=== PATIENT | male | born 1950 | race Caucasian/White ===

== ENCOUNTER 2019-11-29 09:48 | Observation (INO) ==
--- NOTE | 2019-11-27 08:29 | PAT Medication Instructions ---
Medication Instructions Date of Service November 27, 2019 Home Medications aspirin [Aspir-81] 81 mg PO QAM coQ10 (ubiquinol) 200 mg PO QAM escitalopram oxalate 20 mg PO QAM glipizide 10 mg PO BID hydrochlorothiazide 25 mg PO QAM levothyroxine 125 mcg PO QAM lisinopril 10 mg PO BID metformin 1,000 mg PO BID [id number]-[id number] [Multivitamin 50 Plus] 1 tab PO QAM rosuvastatin 10 mg PO HS selenium 200 mcg PO QAM ASK your surgeon for instructions aspirin [Aspir-81] 81 mg PO QAM STOP taking 2 weeks before surgery If surgery is within 2 weeks, stop taking as soon as possible. coQ10 (ubiquinol) 200 mg PO QAM fiofznhphdod-iljmuixu-fatmps [Multivitamin 50 Plus] 1 tab PO QAM selenium 200 mcg PO QAM DO NOT take the morning of surgery glipizide 10 mg PO BID hydrochlorothiazide 25 mg PO QAM lisinopril 10 mg PO BID metformin 1,000 mg PO BID Take morning of surgery With a small sip of water, OTHERWISE NOTHING TO EAT OR DRINK AFTER MIDNIGHT: escitalopram oxalate 20 mg PO QAM levothyroxine 125 mcg PO QAM Take evening before surgery glipizide 10 mg PO BID lisinopril 10 mg PO BID metformin 1,000 mg PO BID rosuvastatin 10 mg PO HS Other Notes If you have any questions please call us at [phone] or [phone] or [phone] or [phone]
--- NOTE | 2019-11-27 10:05 | Anesthesiology Consultation ---
Date of Service November 27, 2019 Assessment & Plan (1) Encounter for pre-operative examination: COVID Status: As of 11/26 assessment, patient denies travel to endemic area, known exposure/sick contacts, or symptoms of COVID19. Patient instructed that they and their household members must follow strict social distancing guidelines, wear a mask in public and avoid travel for 14 days prior to surgery. Preoperative COVID19 testing to be completed prior to surgery per surgeon's a rrangements. Patient made aware to self-isolate as much as possible between COVID testing and surgery. Patient was seen by urology on 11/25 and booked [facility] due to infection and urgent need for intervention. Case for medical necessity as noted in surgeon's H+P in EMR. Per surgeon's senior office support assistant sosa, surgeon discussed case with Dr. Lundberg. COVID testing was done at [facility] 11/26 but may not be resulted by AM DOS. Travel history is very low-risk. Patient is retired, reports he wears a mask and adheres to social distancing/hygiene guidelines. Has not been in any large crowds/events, no travel. Can order [place] test AM DOS and use 20/20 rule at anesthesia discretion. Chart Review Chart Review: Acceptable Risk for Surgery and Patient seen in Pre Admission Testing Teaching & Discussion Instructed NPO after midnight before surgery, except medications with 15 cc of water. Medication instructions provided according to the [facility] guidelines. History Surgery Operation Date: 11/29/19 11:10 Proposed Procedures p Explantation of Implant, Possible Implantation of Inflatable Penile Prothesis, Malleable Implant, Washout, Repair of Corporal Body - Byron Phillips, Height/Weight Height: 5 ft 10 in Weight: 105.6 kg Allergies Allergy/AdvReac Type Severity Reaction Status Date / Time atorvastatin AdvReac Mild FLU LIKE SX Unverified 11/27/19 07:50 Medications Home Medications Medication Instructions Recorded Confirmed Last Taken aspirin [Aspir-81] 81 mg PO QAM 11/27/19 11/27/19 Unknown coQ10 (ubiquinol) 200 mg PO QAM 11/27/19 11/27/19 Unknown escitalopram oxalate 20 mg PO QAM 11/27/19 11/27/19 Unknown glipizide 10 mg PO BID 11/27/19 11/27/19 Unknown hydrochlorothiazide 25 mg PO QAM 11/27/19 11/27/19 Unknown levothyroxine 125 mcg PO QAM 11/27/19 11/27/19 Unknown lisinopril 10 mg PO BID 11/27/19 11/27/19 Unknown metformin 1,000 mg PO BID 11/27/19 11/27/19 Unknown kiwwvxxwgvbr-rcjevswb-fruugi 1 tab PO QAM 11/27/19 11/27/19 Unknown [Multivitamin 50 Plus] rosuvastatin 10 mg PO HS 11/27/19 11/27/19 Unknown selenium 200 mcg PO QAM 11/27/19 11/27/19 Unknown Past Medical History Medical History Anxiety and depression Degenerative disc disease Diabetes mellitus, type 2 On Metformin and Glipizide Gross hematuria Will have occasionally, 2/2 h/o radiation to prostate. History of prostate cancer S/P radical prostatectomy and radiation ~2008 Hyperlipidemia Hypertension Hypothyroidism Osteoarthritis Sleep apnea USES CPAP Exercise / Class Metabolic Activity II 4-5 Yardwork/Stairs/Walk up hill Past Family History Family History Father Family history of diabetes mellitus Past Surgical History Surgical History H/O hand surgery RT CYST REMOVED H/O metal removed from eye History of colonoscopy History of open reduction and internal fixation (ORIF) procedure LEFT LEG History of penile implant History of repair of rotator cuff RT History of surgery on arm LEFT FX ARM REPAIRED (HARDWARE REMOVED) History of tonsillectomy History of tooth extraction Hx of radical prostatectomy Past Anesthesia History No Hx of Anesthesia Complications and No Family Hx of Anesthesia Complications History of PONV No Hx of PONV and Hx of Motion Sickness Social History Smoking Status: Former smoker tobacco type: cigarettes Do You Dip or Chew Tobacco: No Smoking End Date: Hx Alcohol Use: Yes Alcohol type: beer, wine and hard liquor alcohol intake frequency: a few times a month substance use type: does not use Review of Systems Pt denies any recent chest pain, shortness of breath, palpitations, cough, fever, URI, or uncontrolled acid reflux. Physical Exam Vital Signs BP: 134/73 P: 65bpm SPO2: 94% RA T: 98.5 F R: 16 ENMT Mouth: + dental restorations (implant upper R side); no chipped teeth and no loose teeth Thyromental Distance: < 3.5 Finger Breadths (3) Mallampati Class: I Neck normal visual inspection and + facial hair (medium length goatee); neck extension not limited Respiratory normal respiratory effort Auscultation: lungs clear to auscultation bilaterally Cardiovascular Rate/Rhythm: regular rate and regular rhythm Heart Sounds: no murmur Extremities: no edema Testing Laboratory Results 11/27/19 08:15 11/27/19 10:17 Hemoglobin A1c 7.6 % (4.5-5.6) H 11/27/19 08:15 Urine Color Dark Yellow 11/27/19 08:15 Urine Appearance Clear (Clear) 11/27/19 08:15 Urine pH 6.5 (4.5-7.5) 11/27/19 08:15 Ur Specific Hondo 1.015 (1.000-1.030) 11/27/19 08:15 Urine Protein Negative (Negative) 11/27/19 08:15 Urine Glucose (UA) Negative (Negative) 11/27/19 08:15 Urine Ketones Negative (Negative) 11/27/19 08:15 Urine Nitrite Negative (Negative) 11/27/19 08:15 Ur Leukocyte Esterase Negative (Negative) 11/27/19 08:15 Electrocardiogram Date: 11/27/19 Findings: + NSR @ (65bpm) Low voltage QRS.
[2019-11-27 10:40] LABS: Appearance Urine Clear (Clear); Bilirubin Urine Negative (Negative); Blood Urine Negative (Negative); Color Urine Dark Yellow; Glucose Urine UA Negative (Negative); Ketones Urine Negative (Negative); Leukocyte Esterase Urine Negative (Negative); Nitrite Urine Negative (Negative); Protein Urine Negative (Negative); Specific Gravity Urine 1.015 (1.000-1.030); Urobilinogen Urine Negative (Negative); pH Urine 6.5 (4.5-7.5)
[2019-11-27 10:42] LABS: Basophils # (auto) 0.01 K/uL (0-0.2); Basophils % (auto) 0.1 %; Eosinophils # (auto) 0.18 K/uL (0-0.5); Eosinophils % (auto) 2.6 %; Hematocrit (blood only) 42.7 % (42-52); Immature Granulocytes # (auto) 0.05 K/uL (0.00-0.02); Immature Granulocytes % (auto) 0.7 %; Lymphocytes # (auto) 1.65 K/uL (1.2-3.4); Lymphocytes % (auto) 23.5 %; Mean Corpuscular Hemoglobin 30.1 pg (25-34); Mean Corpuscular Hgb Conc 32.8 g/dL (32-36); Mean Corpuscular Volume 91.8 fL (80-100); Mean Platelet Volume 10.1 fL (7.4-10.4); Monocytes # (auto) 0.49 K/uL (0.11-0.59); Neutrophils # (auto) 4.63 K/uL (1.4-6.5); Neutrophils % (auto) 66.1 %; Platelet Count 190 K/uL (130-400); RDW Coefficient of Variation 13.5 % (11.5-14.5); RDW Standard Deviation 44.6 fL (36.4-46.3); Red Blood Count 4.65 M/uL (4.7-6.1); White Blood Count 7.01 K/uL (4.8-10.8)
[2019-11-27 11:00] LABS: Estimated Average Glucose 171 mg/dl; Hemoglobin A1C 7.6 % (4.5-5.6)
[2019-11-27 11:09] LABS: BUN Creatinine Ratio 18.2 (10-20); Calcium 9.7 mg/dl (8.5-10.1); Creatinine Clr Calc Pharmacy 77.2 ml/min; Est GFR (African American) 77.5; Est GFR (Non-African American) 66.9; Potassium 4.2 mmol/L (3.5-5.1)
[2019-11-29 08:06] LABS: SARS CoV2 RNA (COVID-19) NOT DETECTED (NOT DETECTED)
[~2019-11-29 09:48] MED LIST: GENTAMICIN SULFATE 160 MG in DEXTROSE 5% 100 ML IV SCH; LR 15ML/HR IV SCH; PIPERACILLIN/TAZOBACTAM 3.375 GM in DEXTROSE 5% 100 ML IV SCH
--- NOTE | 2019-11-29 10:14 | History & Physical Bridge Note ---
Date of Service November 29, 2019 History & Physical Bridge Note I have examined the patient, reviewed the History & Physical and in the interval since the performance of the History & Physical I have noted the following changes of clinical significance: no changes noted
[2019-11-29] MEDS ORDERED: ONDANSETRON INJ 2 MG/ML 2 ML VIAL ONE (11:22)
[2019-11-29] MEDS ORDERED: DEXAMETHASONE SOD INJ 4 MG/ML VIAL ONE (11:22)
[2019-11-29] MEDS ORDERED: PROPOFOL IV EMULSION 10 MG/ML 20 ML VIAL IV ONE (11:22)
[2019-11-29] MEDS ORDERED: MIDAZOLAM HCL 1 MG/ML 2ML VIAL ONE (11:22)
[2019-11-29] MEDS ORDERED: fentaNYL citrate 100 MCG/2 ML VIAL ONE ×2 (11:22→13:44)
[2019-11-29] MEDS ORDERED: LIDOCAINE HCL 2% 2 ML VIAL/AMP(20MG/ML) INFIL ONE (11:22)
[2019-11-29] MEDS ORDERED: MEPERIDINE HCL 25 MG/ML CARP/VIAL IV PRN (11:25)
[2019-11-29] MEDS ORDERED: PHENYLEPHRINE 100MCG/ML 5ML SYR IV PRN (11:25)
[2019-11-29] MEDS ORDERED: ePHEDrine sulfate 50 MG/ML AMP IV PRN (11:25)
[2019-11-29] MEDS ORDERED: ATROPINE SULFATE 0.1 MG/ML 10ML SYR IV PRN (11:25)
[2019-11-29] MEDS ORDERED: LABETALOL HCL IV 5 MG/ML 20ML IV PRN (11:25)
[2019-11-29] MEDS ORDERED: ONDANSETRON INJ 2 MG/ML 2 ML VIAL IV PRN (11:25)
[2019-11-29] MEDS ORDERED: VANCOMYCIN HCL 1000MG/20ML VIAL ONE (11:58)
[2019-11-29] MEDS ORDERED: BACITRACIN INJ 50,000 UNIT VIAL ONE (11:58)
[2019-11-29] MEDS ORDERED: GENTAMICIN SULFATE 40 MG/ML 2 ML VIAL ONE (12:01)
--- NOTE | 2019-11-29 12:07 | Electrocardiogram Report ---
Test Reason : Blood Pressure : / mmHG Vent. Rate : 065 BPM Atrial Rate : 065 BPM P-R Int : 174 ms QRS Dur : 096 ms QT Int : 394 ms P-R-T Axes : 036 040 040 degrees QTc Int : 409 ms Normal sinus rhythm Low voltage QRS Borderline ECG No previous ECGs available Confirmed by Omer Campbell ([id number]) on 11/29/2019 12:07:10 PM Referred By: Byron Phillips Confirmed By:Omer Campbell
[2019-11-29] MEDS ORDERED: BUPIVACAINE 0.25% 30 ML VIAL ONE (12:21)
[2019-11-29] MEDS ORDERED: PIPERACILL/TAZOBAC CONSULT ACTIVE PRN (12:33)
[2019-11-29] MEDS ORDERED: PIPERACILLIN/TAZOBACTAM 3.375 GM in DEXTROSE 5% 100 ML IV SCH (12:45)
[2019-11-29] MEDS ORDERED: GLYCOPYRROLATE 0.2 MG/ML VIAL ONE (13:51)
--- NOTE | 2019-11-29 16:40 | Operative Report ---
PG Post Operative Report Pre & Post Diagnosis Operation Date: 11/29/19 11:45 Pre-Op Diagnosis: Malfunction of penile implant Post-Op Diagnosis: Malfunction of penile implant I identified the patient and participated in the time-out.: Yes Procedure Operation Date: 11/29/19 11:45 Actual Procedures p Explantation of Inflatable three piece Implant, Malleable Penile Implantation, Abraham Protocol Washout, Repair of Corporal Body(Not Applicable) - Byron Phillips, Surgeon Byron Phillips, II, DO Digester Operator None Estimated Blood Loss 15 Findings Consistent with Post-Op Diagnosis Buckling and malposition of penile implant with failure to function and development of severe inflammation. Specimens Explanted device Drains 10 Fr drain x 2 18 Fr Silicon Maldonado Anesthesia Type General Complications none Disposition Disposition: Recovery Room Indications Buckling and malposition of penile implant with failure to function and development of severe inflammation. Risks and benefits discussed at length. Description of Procedure Patient was informed of all risks and benefits and all questions answered. He gave consent for the procedure. The patient was brought back to the operating room. Patient was placed under anesthesia in the supine position. Patient was prepped and draped in the regular sterile fashion. A 10 minute wash and prep was completed by standard protocol for implant placement. A time out was completed. The correct patient and procedure were identified and confirmed. Ioban d ressings were placed to limit skin exposure. A catheter was placed and drained the bladder and was then wiped clean with antibiotic solution. With the time out completed, the device was fully assessed. Due to the area of concern of corporal issues at the distal right lateral shaft, the subcoronal approach was selected. The distal incision was planned and the skin was marked. The base of the penis was assessed and a penile block was completed with 50-50 lidocaine-marcaine local injected into the subcutaneous tissues at the dorsal base of penis after aspirating without blood or issues. A 15-blade scalpel was used to make the distal incision. Care was taken to monitor the important structures of the penis and meatus and glans. The skin was then dissected free and the penis was degloved to the base. The three piece pump was then freed and dissected free of the the surrounding tissues. The Blessing tubing was isolated and found to travel up the left inguinal region. It was clamped and cut to allow manipulation of the device. The tubing heading to the corporal bodies were dissected free. 2-0 Vicryl stay sutures were placed. The corporal body was then opened. The tubeing was manipulated and the implant removed bilaterally. Each side appeared to be missing rear tip extenders. With manipulation these were delivered out the the body. The device was then placed into a container to be sent for gross examination. Cautery was used for any bleeding. Care was taken to monitor the entire time. The wound bed was inspected. No bleeding or other issues. At this point, the corpora cavities were inspected and irrigated with antibiotic solution. These were measured and the corporatomies were extended. Villela dilators were used to assess each side and rule out cross over. Weakening of the distal body on the right was noted and was likely due to pressure from buckling. The right side had an area that was then repaired to close the body. The cavities were irrigated as well as the cavity from the dartos pocket where the pump had been placed. These areas were gently packed with antibiotic lap tapes. Due to the location of the reservoir, the left inguinal area was marked and incised to dissect down to the the inguinal region. The tubing was able to be freed and eventually after considerable dissection, the reservoir was removed en total. The area was flushed multiple times. At this point, with the device completely removed, gloves were changed and a Abraham protocol washout was completed with 7 washouts of Bacitracin, Hydrogen Peroxide, Betadine, Vancomycin with Gentamycin, followed by the first three washes in reverse order. This was completed for the entire area. New towels were placed after irrigation. The equipment was dipped in antibiotic solution. The corporal cavities were measured again. The right side measured 18cm with the left measuring 17 cm. The malleable SmartFocus implants were selected. The 11 implants were selected after measuring. The implants were cut to 17.5 and 17 cm right and left. These were soaked in Vancomycin with Zosyn solution. The zero rear tip extenders/caps were selected. The devices were placed using sterile minimal manipulation technique. The were placed and seated and appeared in good position. The cavities had been checked for cross over and other issues prior to placement. The corporotomies were closed using the 2-0 Vicryl sutures. The area was flushed multiple times. A 3-0 PDS was then used to close the dartos layers at the base of the penis. A drain was placed in the scrotum/dartos pouch and the left inguinal region. These were secured to the skin with a 2-0 nylon. The inguinal incision was closed in layers with a 3-0 PDS and a 1-0 Vicryl followed by a 4-0 Monocryl on the skin. The circumcision scar incision was then closed at the 12 and 6 o'clock position to anchor the edges for closure. This was then approximated with a running 4-0 Monocryl. Irrigation was completed during the process and all bleeding was controlled. The area was cleaned. Adhesive glue was then placed on each incision. The patient was cleaned. Further local was injected at the base of penis circumferentially. A tegaderm bandage was placed on each incision after the glue dried. A bandage was then wrapped around the entire penis gently and then with a Coban dressing wrapped around as the last layer. A ice pack was applied. A sandbag was placed over the groin incision. The patient was cleaned, aroused from anesthesia, and transferred to the pacu in stable condition having tolerated the procedure well with no complications. I was present and participated in all aspects of the procedure. All counts were correct x 2. See implant record for further information I attest to the content of the Intraoperative Record and any orders documented therein. Any exceptions are noted below.
[2019-11-29] MEDS: fentaNYL citrate 100 MCG/2 ML VIAL IV PRN ×4 (16:52→17:07)
[2019-11-29] MEDS: HYDROmorphone INJ 1 MG/ML SYRINGE IV PRN ×3 (17:12→17:40)
--- NOTE | 2019-11-29 17:34 | Anesthesiology Progress Note ---
Date of Service November 29, 2019 Anesthesia Post Procedure Vital Signs Vital Signs: Temp Pulse Pulse Resp BP Pulse Ox 11/29/19 17:15 61 14 151/80 H 99 11/29/19 17:05 63 14 148/89 H 100 11/29/19 16:55 63 12 148/90 H 93 11/29/19 16:45 62 15 161/92 H 93 11/29/19 16:38 36.7 C 69 16 174/90 H 100 11/29/19 10:54 36.8 C 62 16 162/73 H 96 Pain Intensity Bilateral Groin: Pain Intensity: 5 Transfer of Care Handoff Completed per policy Notes Mental Status: alert / awake / arousable and participated in evaluation Patient Amnestic to Procedure: Yes Nausea / Vomiting: adequately controlled Pain: adequately controlled Airway Patency, RR, SpO2: stable & adequate BP & HR: stable & adequate Hydration State: stable & adequate Anesthetic Complications: no major complications apparent
[2019-11-29] MEDS ORDERED: PHARMACY GLYCEMIC MGMT CONSULT PRN (19:22)
[2019-11-29] MEDS: SODIUM CHLORIDE 0.9% 1000ML 1,000 ML IV SCH (19:38)
[2019-11-29] MEDS ORDERED: GLUCOSE 10 TABS/TUBE PO PRN (19:45)
[2019-11-29] MEDS ORDERED: DEXTROSE 50% 50 ML SYRINGE IV PRN (19:45)
[2019-11-29] MEDS ORDERED: GLUCAGON FOR INJ 1 MG VIAL IM PRN (19:45)
[2019-11-29] MEDS ORDERED: GLUCOSE 40% GEL 15 GM TUBE PO PRN (19:45)
[2019-11-29] MEDS ORDERED: CARBOHYDRATES FOR HYPOGLYCEMIA PO PRN (19:45)
[2019-11-29] MEDS: MoRPHine SULFATE 2 MG/ML CARP IV PRN (19:50)
[2019-11-29] MEDS: lisinopriL 10 MG TAB PO SCH (20:50)
[2019-11-29] MEDS: DOCUSATE SODIUM 100 MG CAP PO SCH (20:50)
[2019-11-29] MEDS: INSULIN ASPART 100 UNITS/ML 3 ML PEN SC SCH (20:59)
[2019-11-29] MEDS ORDERED: glipiZIDE 5 MG TAB PO SCH (21:00)
[2019-11-29] MEDS ORDERED: INSULIN GLARGINE SOLOSTAR 100 UNITS/ML 3 ML PEN SC SCH ×2 (21:00→21:45)
[2019-11-29] MEDS ORDERED: ROSUVASTATIN CALCIUM 10 MG TAB PO SCH (21:00)
[2019-11-29] MEDS: OXYCODONE/APAP 7.5/325MG TAB PO PRN (23:24)
[2019-11-30] MEDS: OXYCODONE/APAP 7.5/325MG TAB PO PRN (05:45)
[2019-11-30] MEDS ORDERED: LEVOTHYROXINE SODIUM 125 MCG TABLET PO SCH (06:30)
[2019-11-30 07:16] VITALS: BP 123/68; TEMP 98.2; O2SAT 92
[2019-11-30] MEDS: SODIUM CHLORIDE 0.9% 1000ML 1,000 ML IV SCH (07:31)
[2019-11-30] MEDS: MoRPHine SULFATE 2 MG/ML CARP IV PRN (07:31)
--- NOTE | 2019-11-30 08:48 | Urology Progress Note ---
Date of Service November 30, 2019 Assessment & Plan (1) Malfunction of penile prosthesis: Postop day 1 status post explantation with reimplantation of a new malleable implant. No major problems or issues. Tolerated activity. Has been slowly increasing activity. Had tolerated diet. No major problems or concerns. Pain is controlled. Discussed different options. Plan will be to remove catheter today have patient continue to ambulate and likely go home later in the afternoon. We will continue to monitor. Call if any changes or problems. (2) Prostate cancer: Admission and Anticipated Discharge Date Admission Date: November 29, 2019 Subjective Postop from urologic surgery. Patient has been tolerating well, but is having some pain and discomfort. Incisions have been mild sore. Having some abdominal distension/gas pains. Has tolerated catheter. Drains in place without major problems or issues Has not had severe pain or uncontrollable pain. Patient has been ambulating. Has not had bowel movement or major change. No new nausea or vomiting. Had tolerated anesthesia without major problems Tolerated liquid diet postoperatively. Review of Systems Review of Systems: All systems reviewed & are unremarkable except as noted in HPI & below Physical Exam Physical Exam: General: Alert in no acute distress. HEENT: Normocephalic Atraumatic. Inspection normal. Cranial Nerves 2-12 Grossly intact. Normal inspection of face. Normal inspection of neck. Psychologic: Normal affect. Respiratory: Nonlabored. No use of accessory muscles. No tachypnea or dyspnea. Cardiovascular: No tachycardia Skin: [place] and Dry. No rashes or visible lesions. Extremities/Lymphatics: No edema Abdomen: Appropriately tender. Mild distended. No rebound or guarding. Wound: Clean, dry, covered.. Scrotal support in place. Bilateral drains in place with serosanguineous fluid. Results & Data ([facility]) Vital Signs (Past 12 Hours) Vital Signs Temp Pulse Resp BP Pulse Ox 11/30/19 07:15 36.8 C 57 L 18 123/68 92 11/30/19 03:45 36.6 C 60 16 115/66 95 11/29/19 23:20 37.1 C 68 16 144/71 H 93 11/29/19 21:57 37 C 73 16 117/62 91 11/29/19 20:53 36.8 C 71 16 126/63 92 PG Care Time/CCT Total # of Minutes Spent Total Time Spent with Patient: Total time spent is greater than 50% in coordination of care (as documented) at patient's floor/unit and/or counseling patient: Coding Level of Care Code 23518 Subseq Hosp Care Lvl 3 Diagnoses Malfunction of penile prosthesis T83.490A Prostate cancer C61
[2019-11-30] MEDS ORDERED: hydroCHLOROthiazide 25 MG TAB PO SCH (09:00)
[2019-11-30] MEDS ORDERED: ESCITALOPRAM OXALATE 20 MG TAB PO SCH (09:00)
[2019-11-30] MEDS: lisinopriL 10 MG TAB PO SCH (09:30)
[2019-11-30] MEDS: DOCUSATE SODIUM 100 MG CAP PO SCH (09:30)
[2019-11-30] MEDS: INSULIN ASPART 100 UNITS/ML 3 ML PEN SC SCH ×2 (09:33→14:28)
--- NOTE | 2019-11-30 10:29 | Pharmacy Report ---
Glycemic Control Consultation - Date of Service November 30, 2019 - Scope Scope: Glycemic Pharmacist consulted for glycemic control and to write orders per [facility] inpatient glycemic control protocol. - Objective Weight: 104.4 kg Accuchecks BSG (last 24hrs): 11/29/19 11/29/19 11/29/19 10:24 16:40 18:56 POC Glucose 169 H 152 H 167 H 11/29/19 11/30/19 20:55 08:51 POC Glucose 274 H 112 H HbA1c: Hemoglobin A1c 7.6 % (4.5-5.6) H 11/27/19 08:15 - Recent Pertinent Medications Outpatient Anti-diabetic Regimen: * metformin + glipizide 10 mg BID * A1c = 7.6 % 11/27/19 The patient is currently receiving: * Basal insulin: Lantus 30 units x 1 * Correctional Insulin: Novolog Correction per scale ACHS Goal Range: Low 110 mg/dL - High 140 mg/dL Correction Factor: 20 mg/dL/unit * Prandial insulin: Per carb ratio of 1 unit per 7 grams CHO consumed Risk Factors for Insulin Resistance: * Steroids: dexamethasone 4 mg IV intraoperatively * Recent Surgery: POD 1 for replacement of penile implant * Diet: T2DM - Assessment & Plan Assessment & Plan: ASSESSMENT: * Mr Vazquez is a 69 y/o M with moderately controlled T2DM on 2 oral agents who presents for replacement of penile implant. * He received dexamethasone 4 mg during surgery. * Patient given weight-based stress of 3 half dose last night due to elevated blood sugars. Plan weight-based scale for tonight with max dose of 20 units. * Novolog weight-based stress of 2 for now. * Pt is maintained on oral antidiabetic agents as an outpatient * Will hold oral agents for admission and utilize SQ basal bolus insulin regimen which is the recommended regimen for inpatient glycemic control. PLAN FOR INPATIENT GLYCEMIC CONTROL: * Holding outpatient oral diabetes medications * Basal insulin * Lantus 10-20 units SQ HS (10 units if BSG less than 140 mg/dL; 15 units if BSG 140-180 mg/dL; 20 units if BSG greater than 180 mg/dL) * Bolus insulin * NovoLog per scale ACHS or Q6hrs while NPO * Goal Range: Low 110 mg/dL - High 140 mg/dL * Correction Factor: 20 mg/dL/unit * Nutritional / Prandial insulin per carb ratio of 1 unit per 7 grams CHO consumed Recommendation for Outpatient Management * Patient's HbA1C is above goal * Goal = 7% * Current HbA1C = 7.6% * Recommend follow-up with provider for addition of injectable agent such as GLP-agonist or addition of a 3rd oral agent. Thank you.
[2019-11-30 14:01] VITALS: PULSE 64
[2019-11-30] MEDS ORDERED: INSULIN GLARGINE SOLOSTAR 100 UNITS/ML 3 ML PEN SC SCH (21:00)
--- NOTE | 2019-12-01 18:45 | Discharge Summary ---
Date of Service December 01, 2019 Admission HPI Per Admitting Provider See H&P Admission Exam Per Admitting Provider See H&P Principal Diagnosis Malfunctioning Device. Discharge Exam General: Alert in no acute distress. HEENT: Normocephalic Atraumatic. Inspection normal. Psychologic: Normal affect. Skin: [place] and Dry. No rashes or visible lesions. Abdomen: Soft Non-distended. No rebound or guarding. Discharge Data Allergies Allergy/AdvReac Type Severity Reaction Status Date / Time atorvastatin AdvReac Mild FLU LIKE SX Unverified 11/27/19 07:50 Procedures Performed Operation Date: 11/29/19 11:45 Actual Procedures p Explantation of Inflatable Implant, Malleable Implantantion, Washout, Repair of Corporal Body(Not Applicable) - Byron Phillips DO Hospital Course (1) Malfunction of penile prosthesis: Postop day 1 status post explantation with reimplantation of a new malleable implant. No major problems or issues. Tolerated activity. Has been slowly increasing activity. Had tolerated diet. No major problems or concerns. Pain is controlled. Discussed different options. Plan will be to remove catheter today have patient continue to ambulate and likely go home later in the afternoon. We will continue to monitor. Call if any changes or problems. (2) Prostate cancer: Total Time Total Time Spent Total Time Spent (In Minutes): 10 minutes Total Time Includes: Examination of the Patient, Discharge Planning, Medication Reconciliation and Communication With Other Providers Discharge Plan Discharge Items Patient Disposition: Home - Self-Care Reason For Visit: Malfunction of implant Discharge Diagnosis: Same Condition on Discharge: Good Activity: Resume your previous activity Lifting: No more than 25 pounds Bathing Comment: Okay to wash starting in 1 day. No soaking Non-emergency contact: Urologist Call non-emergency contact if: you have any medication questions, your symptoms worsen, your pain is not controlled, your pain is worsening, your pain is unusual for you, your pain is concerning for you, you have a fever, your temperature is above 101.5, your wound has increased redness, your wound has increased drainage and your wound pain has increased Follow-up/Referrals: Byron Phillips DO [Physician] - Leoncio Hsu DO [Primary Care Provider] - Diet: Regular Addtl Attending Provider Instructions: Please take all medications for pain control as needed as prescribed and keep all follow-ups as scheduled. Please call our office at [phone] with any questions, concerns or need to reschedule appointments for any reason. We are happy to assist you. What to expect after your circumcision surgery: You will probably see a crust of blood or yellowish coating around the head of the penis. Do not remove scabs. Its OK if they fall off on their own. Your penis will swell. It may bleed a little around the incision. The head of the penis may become red or [id number]. You may experience pain with urination for the first few days. Take pain medicine if you feel you need it. Healing takes about 2-3 weeks, and your stitches will dissolve on their own, unless you have been informed otherwise. When to call [facility] at [phone] (or report to the ED if it is after hours): Fever of 101F or higher Discharge that is heavy, a greenish color, or lasts more than a week Bleeding that isnt controlled by applying gentle pressure Inability to urinate Okay to shower and wash after 24 hours. Okay to wash 2-3 x per day as needed. Okay to ice 20 mins on and 20 mins off for next 1-2 weeks. Utilize scrotal support. Pending Studies at Discharge: No Stand-Alone Forms: My [facility], Opioid Pain Management Medications and DC Order Prescriptions: New oxycodone-acetaminophen [Percocet] 7.5-325 mg tablet 1 tab PO Q8H PRN (Reason: pain) Qty: 14 RF: 0 doxycycline hyclate 100 mg capsule 100 mg PO BID 7 Days Qty: 14 RF: 0 Continued lisinopril 20 mg Tablet 10 mg PO BID RF: 0 glipizide 10 mg Tablet 10 mg PO BID RF: 0 aspirin [Aspir-81] 81 mg Tablet,Delayed Release (Dr/Ec) 81 mg PO QAM RF: 0 metformin 1,000 mg Tablet 1,000 mg PO BID RF: 0 levothyroxine 125 mcg Tablet 125 mcg PO QAM RF: 0 hydrochlorothiazide 25 mg Tablet 25 mg PO QAM RF: 0 Multivitamin 50 Plus Tablet 1 tab PO QAM RF: 0 escitalopram oxalate 20 mg Tablet 20 mg PO QAM RF: 0 rosuvastatin [Crestor] 20 mg Tablet 10 mg PO HS RF: 0 coQ10 (ubiquinol) 200 mg Capsule 200 mg PO QAM RF: 0 selenium 200 mcg Capsule 200 mcg PO QAM RF: 0 No Action Lantus Solostar U-100 Insulin 100 unit/mL (3 mL) Insulin Pen 33 SUBCUT QPM RF: 0 Discharge Orders: Discharge Order (Routine); Ordered 11/30/19 Ordered By: Byron Almazan/Other Patient Handouts: Understanding Deep Vein Thrombosis Admission Data Admit Date/Time: 11/29/19 16:42 Attending Provider: Byron Phillips Admit Provider: Byron Phillips Primary Care Provider: Leoncio Hsu Other Interventions: Discharge Summary Assessment (RN) Last Done: 11/30/19 13:58 Coding Level of Care Code D/C Day Management <30 mins Diagnoses Malfunction of penile prosthesis T83.490A Prostate cancer C61
== END 2019-11-30 15:09 | disposition home or self-care (01) ==
LOC: ASU 09:48 → 3N 09:48
DX: Z88.8 Allergy status to other drugs, medicaments and biological substances; T83.490A Other mechanical complication of implanted penile prosthesis, initial encounter; Z87.891 Personal history of nicotine dependence; I10 Essential (primary) hypertension; Z79.890 Hormone replacement therapy; E78.5 Hyperlipidemia, unspecified; F32.9 Major depressive disorder, single episode, unspecified; E11.9 Type 2 diabetes mellitus without complications; S39.840A Fracture of corpus cavernosum penis, initial encounter; Z79.82 Long term (current) use of aspirin; Z79.84 Long term (current) use of oral hypoglycemic drugs; M19.90 Unspecified osteoarthritis, unspecified site; E03.9 Hypothyroidism, unspecified; T83.61XA Infection and inflammatory reaction due to implanted penile prosthesis, initial encounter; C61 Malignant neoplasm of prostate; Z79.899 Other long term (current) drug therapy; Y73.2 Prosthetic and other implants, materials and accessory gastroenterology and urology devices associated with adverse incidents; F41.9 Anxiety disorder, unspecified